=== PATIENT | male | born 1960 | race Caucasian/White ===

== ENCOUNTER 2018-08-19 16:10 | Outpatient (REF) | payer BC, SELFPAY ==
[2018-08-19 19:33] LABS: Anion Gap 11.7 mmol/L (3-11); BUN 15 mg/dL (7-18); CO2 27.3 mmol/L (21.0-32.0); CREATININE 1.13 mg/dL (0.70-1.30); Calcium 9.3 mg/dL (8.5-10.1); Chloride 102 mmol/L (98-107); Cholesterol 244 mg/dL (50-200); Glucose 81 mg/dL (70-100); HDL Cholesterol 52 mg/dL (40-60); LDL CHOLESTEROL 166 mg/dL (<100); Potassium 3.6 mmol/L (3.5-5.1); Sodium 141 mmol/L (136-145); Triglyceride 139 mg/dL (30-150)
[2018-08-21 09:59] LABS: Hepatitis C Ab w Rflx HCV PCR Negative (NEGAT)
== END 2018-08-19 16:30 ==
LOC: NCHCN 16:10
PROVIDERS: PCP Family Medicine; Visit Provider Family Medicine
DX: Z00.00 Encounter for general adult medical examination without abnormal findings (principal); I10 Essential (primary) hypertension; Z11.59 Encounter for screening for other viral diseases
CPT/HCPCS: 80048; 80061; 83721; 86803

== ENCOUNTER 2018-10-18 13:46 | Observation (INO) | payer BC, SELFPAY ==
[2018-10-18] VITALS (9 sets, daily range): BP systolic 138–166; BP diastolic 84–104; PULSE 71–83; RESP 13–20; TEMP 36.5–37.2; O2SAT 76–100
--- NOTE | 2018-10-18 13:49 | W.ED.GENAD ---
Discharge Plan Disposition Patient Disposition: [facility] Condition: Stable Discharge Details Chief Complaint: ThroatFB Clinical Impression: Esophagus, foreign body Primary Care Provider: Justen Cr ED Provider: Will Bradshaw Home Meds and New Rx's Prescriptions: No Action amlodipine 10 mg tablet 10 mg PO DAILY RF: 0 acetaminophen [Mapap Extra Strength] 500 MG tablet 1,000 mg PO Q6H PRN PRNQty: 30 RF: 0 Medical Decision Making 57 yo male states an hour or so ago he was eating steak and felt a piece get stuck in his throat and points to the mid chest. Is able to swallow but has to spit it back out because he can't get anything by the food bolus. Denies fevers or difficulty breathing, is in no distress on exam no drooling or stridor. Will attempt glucagon and effervescent and monitor. no success with meds, consulted surgery who will take to the OR for endoscopy, potassium is low so replted here. Differential Diagnosis foreign body, stricture HPI General Mode of arrival: ambulatory. Date/Time Provider Initiated Documentation: 10/18/18 13:49. Limitations to Documentation: no limitations. Information obtained by: patient. History of Present Illness 57 year old M presents to the emergency department with the chief complaint of throat foreign body, described as moderate, Patient started experiencing this hour(s) (1) and it has been constant. No relieving factors improve symptom(s), No exacerbating factors reported . Patient did receive the following treatments prior to arrival, none Related Data Home Medications Medication Instructions Recorded Confirmed acetaminophen [Mapap Extra 1,000 mg PO Q6H PRN PRN #30 tab 11/05/13 10/18/18 Strength] amlodipine 10 mg tablet 10 mg PO DAILY 09/03/18 10/18/18 Previous Rx's Medication Instructions Recorded acetaminophen [Mapap Extra 1,000 mg PO Q6H PRN PRN #30 tab 11/05/13 Strength] Allergies Allergy/AdvReac Type Severity Reaction Status Date / Time No Known Allergies Allergy Unverified 09/09/12 07:54 Review of Systems Review of Systems All systems reviewed & are unremarkable except as noted in HPI and below Constitutional Denies chills, Denies fever(s) and Denies weakness ENT Denies change in voice Cardiovascular Denies dyspnea Respiratory Denies cough and Denies dyspnea Gastrointestinal Denies vomiting Integumentary/Breasts Denies rash Neurologic Denies weakness PFSH Medical History Alcohol abuse, in remission (Acute) Hypertension Surgical History Repair of inguinal hernia Family History Mother Essential hypertension Father Essential hypertension Social History Smoking/Tobacco Use Status: Current every day Drug use: Current Sobriety Exam Const General: no acute distress Orientation: alert HENMT Head: normal to inspection Ears: external ears normal General nose exam: external nose normal Mouth: moist mucous membranes Eyes General: appearance normal, both eyes and all related structures Neck Neck: normal visual inspection Resp Effort & Inspection: normal respiratory effort and able to speak in complete sentences Cardio Rate: regular rate GI Palpation: soft Skin General skin exam: no rashes or lesions noted Neuro General: alert and oriented x3 Extrem General: normal to inspection Psych Mental Status: mental status grossly normal
--- NOTE | 2018-10-18 14:05 | ED.GENADUL_ITS ---
Discharge Plan Disposition Patient Disposition: [facility] Condition: Stable Discharge Details Chief Complaint: ThroatFB Clinical Impression: Esophagus, foreign body Primary Care Provider: Justen Cr ED Provider: Will Bradshaw Home Meds and New Rx's Prescriptions: No Action amlodipine 10 mg tablet 10 mg PO DAILY RF: 0 acetaminophen [Mapap Extra Strength] 500 MG tablet 1,000 mg PO Q6H PRN PRNQty: 30 RF: 0 Medical Decision Making 57 yo male states an hour or so ago he was eating steak and felt a piece get stuck in his throat and points to the mid chest. Is able to swallow but has to spit it back out because he can't get anything by the food bolus. Denies fevers or difficulty breathing, is in no distress on exam no drooling or stridor. Will attempt glucagon and effervescent and monitor. no success with meds, consulted surgery who will take to the OR for endoscopy, potassium is low so replted here. Differential Diagnosis foreign body, stricture HPI General Mode of arrival: ambulatory . Date/Time Provider Initiated Documentation: 10/18/18 13:49 . Limitations to Documentation: no limitations . Information obtained by: patient . History of Present Illness 57 year old M presents to the emergency department with the chief complaint of throat foreign body, described as moderate, Patient started experiencing this hour(s) (1) and it has been constant. No relieving factors improve symptom(s), No exacerbating factors reported . Patient did receive the following treatments prior to arrival, none Related Data Home Medications Medication Instructions Recorded Confirmed acetaminophen [Mapap Extra 1,000 mg PO Q6H PRN PRN #30 tab 11/05/13 10/18/18 Strength] amlodipine 10 mg tablet 10 mg PO DAILY 09/03/18 10/18/18 Previous Rx's Medication Instructions Recorded acetaminophen [Mapap Extra 1,000 mg PO Q6H PRN PRN #30 tab 11/05/13 Strength] Allergies Allergy/AdvReac Type Severity Reaction Status Date / Time No Known Allergies Allergy Unverified 09/09/12 07:54 Review of Systems Review of Systems All systems reviewed & are unremarkable except as noted in HPI and below Constitutional Denies chills, Denies fever(s) and Denies weakness ENT Denies change in voice Cardiovascular Denies dyspnea Respiratory Denies cough and Denies dyspnea Gastrointestinal Denies vomiting Integumentary/Breasts Denies rash Neurologic Denies weakness PFSH Medical History Alcohol abuse, in remission (Acute) Hypertension Surgical History Repair of inguinal hernia Family History Mother Essential hypertension Father Essential hypertension Social History Smoking/Tobacco Use Status: Current every day Drug use: Current Sobriety Exam Const General: no acute distress Orientation: alert HENMT Head: normal to inspection Ears: external ears normal General nose exam: external nose normal Mouth: moist mucous membranes Eyes General: appearance normal, both eyes and all related structures Neck Neck: normal visual inspection Resp Effort & Inspection: normal respiratory effort and able to speak in complete sentences Cardio Rate: regular rate GI Palpation: soft Skin General skin exam: no rashes or lesions noted Neuro General: alert and oriented x3 Extrem General: normal to inspection Psych Mental Status: mental status grossly normal
[2018-10-18] MEDS: Potassium Bicarbonate/Cit AC 25 MEQ TABLET.EFF PO (14:13)
[2018-10-18 14:15] LABS: Abs Immature Grans 0.02 k/cumm (0.0-0.09); Absolute Basophil Count 0.07 k/cumm (0.0-0.2); Absolute Eosinophil Count 0.26 k/cumm (0.0-0.7); Absolute Lymphocyte Count 2.08 k/cumm (1.2-3.4); Absolute Monocyte Count 0.82 k/cumm (0.11-0.7); Absolute Neutrophil Count 5.69 k/cumm (1.2-6.7); Basophils % 0.8; Eosinophils % 2.9; HCT 39.1 % (40.0-50.0); HGB 13.7 g/dL (13.5-17.5); Immature Grans % 0.2; Lymphocytes % 23.3; Mean Corpuscular Hemoglobin 30.4 pg (27.0-33.0); Mean Corpuscular Volume 86.7 fL (80-95); Mean Platelet Volume 10.3 fL (8.0-11.0); Monocytes % 9.2; Neutrophils % 63.6; Platelet Count 178 x1000/uL (130-400); RBC 4.51 m/cumm (4.50-6.00); RBC Distribution Width 13.1 % (11.8-14.1); White Blood Cell Count 8.94 k/cumm (4.4-10.8)
[2018-10-18 14:28] LABS: ALT 37 U/L (12-78); AST 25 U/L (15-37); Albumin 4.4 g/dL (3.4-5.0); Alkaline Phosphatase 103 U/L (46-116); Anion Gap 14.4 mmol/L (3-11); BUN 21 mg/dL (7-18); Bilirubin, Total 0.5 mg/dL (0.2-1.0); CO2 24.6 mmol/L (21.0-32.0); Calcium 9.2 mg/dL (8.5-10.1); Chloride 99 mmol/L (98-107); Glucose 104 mg/dL (70-100); Prothrombin Time 9.8 sec (9.3-11.0); Sodium 138 mmol/L (136-145); Total Protein 8.1 g/dL (6.4-8.2)
[2018-10-18 14:35] LABS: Potassium 2.9 mmol/L (3.5-5.1)
[2018-10-18] MEDS: POTASSIUM CHLORIDE 10 MEQ/100 ML BAG 100 MEQ IVPB (14:46)
--- NOTE | 2018-10-18 15:22 | HPE_ITS ---
Date of service: 10/18/18 Time of Service: 15:19 Assessment and Plan (1) Esophageal obstruction due to food impaction: Current visit: Yes Status: Acute 57 y/o male presents with an esophageal food impaction. Remote h/o ETOH abuse and varices. (+) GERD. Suspect that he has a stricture related to GERD. He has failed conservative management in the ED. We discussed the rationale and procedure for an esophagogastroduodenoscopy with removal of foreign body (food bolus), possible biopsy, and possible dilation. Risks, benefits, and alternatives including but not limited to risks with general anesthesia, aspiration, bleeding, infection, missed lesion, perforation, biopsy, dilation, and possible additional procedures all discussed. All questions answered. Patient wishes to proceed with endoscopy. History of Present Illness Chief Complaint: Esophageal food impaction Narrative: 57 y/o male seen in the ED at [facility] for an esophageal food impaction (foreign body). He notes that he was eating steak about 2 hours ago when he felt it get stuck in his chest. He denies any chest pain or shortness of breath. He notes that this happens about once a week when he doesn't cut up his food well enough or chew carefully. He notes that it usuallt passes but this time has not done so despite receiving eff ervescents and glucagon in the ED. He is not able to swallow his secretions. He notes that his brother has had similar issues with a narrowed esophagus. The patient states that he had an EGD about 25 years for bleeding esophageal varices which were cauterized. He notes a history of alcoholism but states that he quit drinking 25 years ago. He has occasional heartburn, especially if he eats late at night, for which he drinks milk. He denies any regular use of OTC or prescripition antacids. Review of Systems Constitutional Reports system reviewed and no additional complaints, except as docu Cardiovascular Denies chest pain, Denies rapid heart rate and Denies dyspnea Respiratory Denies cough and Denies dyspnea Gastrointestinal Denies abdominal pain, Reports heartburn, Denies nausea and Denies vomiting [facility] Medical History Alcohol abuse, in remission (Acute) Hypertension Surgical History History of esophagogastroduodenoscopy (EGD) (Chronic) Repair of inguinal hernia Family History Mother Essential hypertension Father Essential hypertension Social History Smoking/Tobacco Use Status: Current every day Drug use: Current Sobriety Meds Home Medications Medication Instructions Recorded Confirmed Type acetaminophen [Mapap Extra 1,000 mg PO Q6H PRN PRN #30 tab 11/05/13 10/18/18 Rx Strength] amlodipine 10 mg tablet 10 mg PO DAILY 09/03/18 10/18/18 History Allergies Allergy/AdvReac Type Severity Reaction Status Date / Time No Known Allergies Allergy Unverified 09/09/12 07:54 Exam Const General: cooperative, no acute distress and well developed Nutritional Appearance: well nourished Orientation: alert and oriented x3 Eyes Sclera: sclerae normal Resp Effort & Inspection: normal respiratory effort and able to speak in complete sentences Cardio Jugular venous pressure: no JVD Rate: regular rate Rhythm: regular rhythm GI Inspection: non-distended Palpation: not firm, no guarding and nontender Skin General skin exam: no rashes or lesions noted and no jaundice Neuro General: alert and oriented x3 Speech: speech normal Results Labs : 10/18/18 14:05 10/18/18 14:05 Laboratory Results - last 24 hr 10/18/18 10/18/18 10/18/18 14:05 14:05 14:05 WBC 8.94 RBC 4.51 Hgb 13.7 Hct 39.1 L MCV 86.7 MCH 30.4 MCHC 35.0 RDW 13.1 Plt Count 178 MPV 10.3 Immature Gran % 0.2 Neutrophils % 63.6 Lymphocytes % 23.3 Monocytes % 9.2 Eosinophils % 2.9 Basophils % 0.8 Absolute Neutrophils 5.69 Absolute Lymphocytes 2.08 Absolute Monocytes 0.82 H Absolute Eosinophils 0.26 Absolute Basophils 0.07 PT 9.8 INR 1.0 APTT 23.0 Sodium 138 Potassium 2.9 L* Chloride 99 Carbon Dioxide 24.6 Anion Gap 14.4 H BUN 21 H Creatinine 1.10 Estimated GFR/1.73 m2 >= 60.00 Glucose 104 H Calcium 9.2 Total Bilirubin 0.5 AST 25 ALT 37 Alkaline Phosphatase 103 Total Protein 8.1 Albumin 4.4 Last Vital Signs Temp 36.8 C 10/18/18 13:53 Pulse 76 10/18/18 13:53 Resp 20 10/18/18 13:53 BP 149/87 H 10/18/18 13:53 Pulse Ox 100 10/18/18 13:53
[2018-10-18] MEDS: Lactated Ringers 1,000 ML 100 ML IV (16:00)
--- NOTE | 2018-10-18 16:36 | BOWEL_PTH ---
PATIENT: Marvel Brizuela LOC: U#:[id number] AGE/SX: 57/M ROOM: [id number] RE10/18/[address]: Doni Ibarra : 1960 BED: A DIS: 10/18/2018 SPEC #: [id number] RECD: 10/21/18 11:20 STATUS: SOULanie REQ #: [id number] ELAN: 10/18/18 16:[address]: Doni Ibarra DEPT: Surgical Specimen RECD BY: Shruti Diego ENTERED: 10/21/18 11:21 SP TYPE: Bowel OTHR DR: Justen Cr Tissues: 1 - BIOPSY BOWEL Procedures: GROSS AND MICRO LEVEL 4 Comments: [id number]
--- NOTE | 2018-10-18 17:10 | W.PM.OP ---
Date of service: 10/18/18 Time of Service: 17:10 Operative Note DATE OF PROCEDURE: 10/18/18 PRE-OP DIAGNOSIS: Esophageal food impaction POST-OP DIAGNOSIS: same PROCEDURE: Esophagogastroduodenoscopy with biopsy and balloon dilation of esophageal stricture SURGEON: Doni Ibarra ANESTHESIA: GETA ESTIMATED BLOOD LOSS: 0 PATHOLOGY: other (GE junction biopsies) COMPLICATIONS: None Patient was transported to: PACU Patient's condition: stable Indications: 57 y/o male who presented to the ED at [facility] with an esophageal food bolus impaction. Patient presents at this time for an EGD with removal of foreign body (food bolus), possible biopsy, and possible dilation. Endoscopic procedure including risks, benefits, and alternatives had been discussed with the patient and informed consent obtained prior to endoscopy. Findings: Steak bolus in the distal esophagus. Scope was able to be advanced alongside the bolus into the gastric lumen. Stricture of distal esophagus at GE junction dilated with 20 mm balloon. Food bolus able to be advanced into gastric lumen. Procedure Description: Patient was brought to the operating room and placed in the supine position. Patient was intubated and placed under general anesthesia. Time out performed per protocol. Bite block was placed. Olympus endoscope was introduced transorally and advanced down the esophagus under direct vision without resistance. Upper and mid esophagus are unremarkable. In the distal esophagus, a large bolus of food consistent with steak was seen. The scope was able to be advanced alongside the bolus beyond the GE junction into the gastric lumen. The stomach was grossly unremarkable. The scope was advanced beyond the pylorus to the second portion of the duodenum. Duodenum was likewise unremarkable. The scope was withdrawn into the stomach and retroflexed. Proximal stomach was unremarkable. There appeared to be a stricture of the distal esophagus at the GE junction preventing passage of the food bolus. This was dilated with the balloon dilator up to 20 mm. After balloon dilation was completed, the food bolus was easily pushed into the gastric lumen with the endoscope. Esophagitis noted at the GE junction. Multiple random biopsies obtained to rule out Bray's esophagus. The stomach was decompressed prior to withdrawing the scope. The esophagus and posterior phayrnx suctioned as the scope was withdrawn. The patient tolerated the procedure well, was awakened from anesthesia, extubated, and transferred to recovery in satisfactory condition.
--- NOTE | 2018-10-18 17:16 | ROE_ITS ---
Date of service: 10/18/18 Time of Service: 17:10 Operative Note DATE OF PROCEDURE: 10/18/18 PRE-OP DIAGNOSIS: Esophageal food impaction POST-OP DIAGNOSIS: same PROCEDURE: Esophagogastroduodenoscopy with biopsy and balloon dilation of esophageal stricture SURGEON: Doni Ibarra ANESTHESIA: GETA ESTIMATED BLOOD LOSS: 0 PATHOLOGY: other (GE junction biopsies) COMPLICATIONS: None Patient was transported to: PACU Patient's condition: stable Indications: 57 y/o male who presented to the ED at [facility] with an esophageal food bolus impaction. Patient presents at this time for an EGD with removal of fo reign body (food bolus), possible biopsy, and possible dilation. Endoscopic procedure including risks, benefits, and alternatives had been discussed with the patient and informed consent obtained prior to endoscopy. Findings: Steak bolus in the distal esophagus. Scope was able to be advanced alongside the bolus into the gastric lumen. Stricture of distal esophagus at GE junction dilated with 20 mm balloon. Food bolus able to be advanced into gastric lumen. Procedure Description: Patient was brought to the operating room and placed in the supine position. Patient was intubated and placed under general anesthesia. Time out performed per protocol. Bite block was placed. Olympus endoscope was introduced transorally and advanced down the esophagus under direct vision without resistance. Upper and mid esophagus are unremarkable. In the distal esophagus, a large bolus of food consistent with steak was seen. The scope was able to be advanced alongside the bolus beyond the GE junction into the gastric lumen. The stomach was grossly unremarkable. The scope was advanced beyond the pylorus to the second portion of the duodenum. Duodenum was likewise unremarkable. The scope was withdrawn into the stomach and retroflexed. Proximal stomach was unremarkable. There appeared to be a stricture of the distal esophagus at the GE junction preventing passage of the food bolus. This was dilated with the balloon dilator up to 20 mm. After balloon dilation was completed, the food bolus was easily pushed into the gastric lumen with the endoscope. Esophagitis noted at the GE junction. Multiple random biopsies obtained to rule out Bray's esophagus. The stomach was decompressed prior to withdrawing the scope. The esophagus and posterior phayrnx suctioned as the scope was withdrawn. The patient tolerated the procedure well, was awakened from anesthesia, extubated, and transferred to recovery in satisfactory condition.
[2018-10-18] MEDS: amLODIPine 10 MG TAB PO (17:27)
[2018-10-18] MEDS: Pantoprazole 40 MG TABCR PO (17:27)
--- NOTE | 2018-10-18 17:56 | W.PM.DS.N ---
Date of service: 10/18/18 Time of Service: 17:56 DS: Diagnosis Discharge Diagnosis (1) Esophageal obstruction due to food impaction: Status: Acute Discharge Plan Disposition Patient Disposition: HOME Condition: Good Discharge Details Chief Complaint: ThroatFB Clinical Impression: Esophagus, foreign body Attending Provider: Doni Ibarra Primary Care Provider: Justen Cr ED Provider: Will Bradshaw Home Meds and New Rx's Prescriptions: New sucralfate 1 gram Tablet 1 g PO AC & HS 30 Days Qty: 120 RF: 0 pantoprazole 40 mg tablet,delayed release (DR/EC) 40 mg PO DAILY Qty: 30 RF: 0 Continued amlodipine 10 mg tablet 10 mg PO DAILY RF: 0 acetaminophen [Mapap Extra Strength] 500 MG tablet 1,000 mg PO Q6H PRN PRNQty: 30 RF: 0 Discharge Instructions Referrals: Lizbet Staton MD [ [facility] STAFF PHYSICIAN] - (Follow-up with general surgery in 2 weeks. Post-op s/p lap appy.) Activity:: Activity as Tolerated Diet:: Full liquids x 24 hours Discharge Orders Discharge Orders: Discharge Order (Routine); Ordered 10/18/18 Ordered By: Doni Ibarra DS: Data Vitals/I&O Vitals and I&O: Vital Signs Temperature 36.7 C 10/18/18 17:11 Temperature Source Skin 10/18/18 13:53 Pulse 78 10/18/18 17:11 Respiratory Rate 13 10/18/18 17:11 Respiratory Effort Non-Labored 10/18/18 15:43 Respiratory Pattern Normal 10/18/18 14:41 Blood Pressure 162/100 H 10/18/18 17:11 Blood Pressure Position Sitting 10/18/18 13:53 Pulse Oximetry 98 10/18/18 17:11 Respiratory End-tidal CO2 31 10/18/18 17:11 Oxygen Delivery Method Room Air 10/18/18 17:11 Oxygen Flow Rate 0 10/18/18 13:53 Pain Level 0 10/18/18 17:11 Intake & Output 10/17/18 10/18/18 10/18/18 23:59 11:59 23:59 Intake Total 601.667 / 601.667 Balance 601.667 / 601.667 Weight 68.039 kg Intake: IV 601.667 / 601.667 Other: Emesis Description None Labs on day of discharge: Labs from last 24 hours 10/18/18 10/18/18 10/18/18 14:05 14:05 14:05 WBC 8.94 RBC 4.51 Hgb 13.7 Hct 39.1 L MCV 86.7 MCH 30.4 MCHC 35.0 RDW 13.1 Plt Count 178 MPV 10.3 Immature Gran % 0.2 Neutrophils % 63.6 Lymphocytes % 23.3 Monocytes % 9.2 Eosinophils % 2.9 Basophils % 0.8 Absolute Neutrophils 5.69 Absolute Lymphocytes 2.08 Absolute Monocytes 0.82 H Absolute Eosinophils 0.26 Absolute Basophils 0.07 PT 9.8 INR 1.0 APTT 23.0 Sodium 138 Potassium 2.9 L* Chloride 99 Carbon Dioxide 24.6 Anion Gap 14.4 H BUN 21 H Creatinine 1.10 Estimated GFR/1.73 m2 >= 60.00 Glucose 104 H Calcium 9.2 Total Bilirubin 0.5 AST 25 ALT 37 Alkaline Phosphatase 103 Total Protein 8.1 Albumin 4.4 PFSH Medical History Alcohol abuse, in remission (Acute) Hypertension Surgical History History of esophagogastroduodenoscopy (EGD) (Chronic) Repair of inguinal hernia Family History Mother Essential hypertension Father Essential hypertension Social History Smoking/Tobacco Use Status: Current every day Alcohol Intake: former Drug use: Current Sobriety Do you feel safe at home: Yes Do you feel safe in your relationship?: Yes
== END 2018-10-18 18:38 | disposition home or self-care (01) ==
LOC: ER 15:19 → SUR 17:57 → MS 18:09 → ER 10-29 18:37 → SUR 10-29 18:38 → MS 10-29 18:38
PROVIDERS: Admitting Provider Surgery; Emergency Provider Emergency Medicine; PCP Family Medicine; Visit Provider Surgery
PROC: 0DC68ZZ Extirpation of Matter from Stomach, Via Natural or Artificial Opening Endoscopic (ICD-10-PCS; CPT 43247; principal; 2018-10-18 16:00)
DX: K22.2 Esophageal obstruction (principal); T18.128A Food in esophagus causing other injury, initial encounter; K21.9 Gastro-esophageal reflux disease without esophagitis; I10 Essential (primary) hypertension
CPT/HCPCS: 43249; 43239; 36415; 80053; 88305; 96360; 99222; 99285; NC; 85025; 85610; 85730; 99284; J1610; J2250; J3480

== ENCOUNTER 2020-10-18 07:53 | Outpatient (REF) | payer SELFPAY ==
[2020-10-18 15:34] LABS: HCT 42.3 % (40.0-50.0); HGB 14.4 g/dL (13.5-17.5); MCV 88.1 fL (80-95); MPV 11.4 fL (8.0-11.0); Platelet Count 205 10^3/uL (130-400); RDW-SD 42.7 fL; WBC 10.42 10^3/uL (4.4-10.8)
[2020-10-18 16:21] LABS: ALT 42 U/L (16-63); AST 21 U/L (15-37); Albumin 4.2 g/dL (3.4-5.0); Alkaline Phosphatase 104 U/L (46-116); Anion Gap 11.5 mmol/L (3-11); BUN 21 mg/dL (7-18); Bilirubin, Total 0.5 mg/dL (0.2-1.0); CO2 27.5 mmol/L (21.0-32.0); CREATININE 1.2 mg/dL (0.70-1.30); Calculated LDL 150 mg/dL (<100); Chloride 102 mmol/L (98-107); Cholesterol 216 mg/dL (<200); Glucose 115 mg/dL (74-106); HDL Cholesterol 49 mg/dL (40-60); Potassium 3.7 mmol/L (3.5-5.1); Sodium 141 mmol/L (136-145); Total Protein 7.5 g/dL (6.4-8.2); Triglyceride 87 mg/dL (<150)
== END 2020-10-18 07:54 | disposition home or self-care (01) ==
LOC: NCHCN 07:53
PROVIDERS: PCP Family Medicine; Visit Provider Family Medicine
DX: I10 Essential (primary) hypertension (principal); Z00.00 Encounter for general adult medical examination without abnormal findings; E78.5 Hyperlipidemia, unspecified
CPT/HCPCS: 80053; 80061; 85027

== ENCOUNTER 2021-11-02 08:11 | Emergency (ER) | payer OTHER, SELFPAY ==
[2021-11-02 08:25] VITALS: BP 163/95; PULSE 63; RESP 16; TEMP 36.9; O2SAT 99
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
--- NOTE | 2021-11-02 09:47 | NUR.NOTE ---
Nursing Note: Referral faxed to [facility]NT for follow up in 48hrs for right perforated tympanic membrane. Consulted with Dr. John. Skylar Ragland
== END 2021-11-02 09:23 | disposition home or self-care (01) ==
PROVIDERS: Emergency Provider Registered Nurse Emergency; PCP Family Medicine
DX: H72.91 Unspecified perforation of tympanic membrane, right ear (principal)
CPT/HCPCS: 99281; 99282

== ENCOUNTER 2021-12-16 16:51 | Outpatient (REF) | payer BC, SELFPAY ==
[2021-12-16 19:36] LABS: CREATININE 0.9 mg/dL (0.70-1.30); Calculated LDL 78 mg/dL (<100); Cholesterol 146 mg/dL (<200); HDL Cholesterol 61 mg/dL (40-60); Triglyceride 35 mg/dL (<150)
[2021-12-16 19:39] LABS: Hemoglobin A1C 5.5 % (<5.7)
== END 2021-12-16 16:52 | disposition home or self-care (01) ==
LOC: NCHCN 16:51
PROVIDERS: PCP Family Medicine; Visit Provider Family Medicine
DX: Z00.00 Encounter for general adult medical examination without abnormal findings (principal); I10 Essential (primary) hypertension; Z13.1 Encounter for screening for diabetes mellitus; Z13.220 Encounter for screening for lipoid disorders
CPT/HCPCS: 80061; 82565; 83036

== ENCOUNTER 2023-01-30 20:33 | Outpatient (REF) | payer OTHER, SELFPAY ==
[2023-01-30 22:34] LABS: Estimated GFR 84.05 (mL/min/1.73m2)
== END 2023-01-30 20:34 | disposition home or self-care (01) ==
LOC: NCHCN 20:33
PROVIDERS: PCP Family Medicine; Visit Provider Family Medicine
DX: I10 Essential (primary) hypertension (principal)
CPT/HCPCS: 82565